=== PATIENT | female | born 1995 | race Caucasian/White ===

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

== ENCOUNTER 2017-02-24 09:12 | Emergency (ER) | payer SELFPAY ==
[2017-02-24 09:20] VITALS: BP 122/78
[2017-02-24 10:10] LABS: MONONUCLEOSIS PATIENT NEGATIVE (NEGATIVE)
[2017-02-24] MEDS ORDERED: PRED20TA PO (10:33)
[2017-02-24] MEDS ORDERED: CLIN300C8 PO (10:33)
--- NOTE | 2017-02-24 10:38 | PHYS DOC ---
General Chief Complaint: SORE THROAT Stated Complaint: SORE THROAT/FEVER Time Seen by MD: 09:13 Source: patient Exam Limitations: no limitations Problems: History of Present Illness Initial Comments Patient is a 22-year-old female who comes to the ED complaining of sore throat and fever. Patient states for the past few days she's had fever and left-sided sore throat. She says she gets recurrent tonsillitis on the left side and has been treated with antibiotics numerous times. She has history of mono in the past she has pain with swallowing but no difficulty swallowing solids liquids and no difficulty breathing. She has no neck stiffness or immunosuppression and otherwise states she is normally healthy and takes no daily medications. She does not have a primary care doctor and states she is getting a job at the [employer] within a week and we'll have benefits at that time. She currently works at a [employer] and her employer sent her home from work yesterday due to her symptoms. Drcl-eku-cboeulg medications are not helping, she is noted to be tachycardic on arrival she admits to drinking a large coffee on the way to the emergency department. Timing/Duration: last week Severity: moderate Location: throat Prearrival Treatment: over the counter meds Modifying Factors: worse with activity, worse with coughing Associated Symptoms: fever, malaise, sore throat Allergies: Coded Allergies: Penicillins (Verified Allergy, Intermediate, 08/24/13) Past Medical History Medical History: other (recurrent left tonsillitis) Surgical History: noncontributory Social History Smoker: non-smoker Alcohol: none Drugs: none Constitutional: see HPI Ears: denies dizziness, denies pain, denies tinnitus Nose: denies clots, denies congestion Throat: see HPI, denies neck stiffness, painful swallowing, denies difficulty with fluids Respiratory: denies shortness of breath, denies wheezing Cardiovascular: denies chest pain, denies palpitations, denies syncope Gastrointestinal: denies abdominal pain, denies nausea, denies vomiting Musculoskeletal: denies back pain, denies joint swelling, denies neck pain Physical Exam General Appearance: WD/WN, no apparent distress Eyes: bilateral eye normal inspection, bilateral eye PERRL, bilateral eye EOMI Ears: bilateral ear auricle normal, bilateral ear canal normal, bilateral ear TM normal Nose: normal inspection Mouth/Throat: other (left tonsil is 2+ with erythema and exudate right tonsil normal airway is patent) Neck: full range of motion, supple, lymphadenopathy (L) Cardiovascular/Respiratory: normal breath sounds, no respiratory distress 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 Aggressive hydration with Gatorade or water. Eclx-ipn-hifcdmr Tylenol and analgesic throat sprays as needed. Prescription: Clindamycin, prednisone You will need to follow-up with her doctor in 7-10 days for recheck. You may ultimately require and learning consultant referral and tonsillectomy. As you do not have insurance ED staff can give you information regarding the [facility] clinic and other resources collected payment based upon your income. Return to the ED with new or changing symptoms. MAKENNA CORRALES DO Feb 24, 2017 10:38
== END 2017-02-24 10:45 | disposition home or self-care (01) ==
LOC: ER 09:12
DX: J03.90 Acute tonsillitis, unspecified (principal); Z88.0 Allergy status to penicillin
CPT/HCPCS: 86308; 87070; 87880; 99284

== ENCOUNTER 2017-05-12 00:34 | Emergency (ER) | payer OTHER ==
[~2017-05-12] VITALS: Ht 165.1 cm; Wt 54.9 kg
[~2017-05-12 00:34] MED LIST changes: +CLIN300C8 PO; +PRED20TA PO
[2017-05-12 00:49] VITALS: BP 129/78
--- NOTE | 2017-05-12 01:34 | PHYS DOC ---
General Chief Complaint: COUGH Stated Complaint: SORE THROAT,COUGH Time Seen by MD: 00:35 Source: patient Exam Limitations: no limitations Problems: History of Present Illness Initial Comments Patient is a 22-year-old female who comes in the ED complaining of sore throat cough and body aches for the past week. Patient states that approximately one week ago she developed a dry cough with nasal congestion and intermittent headaches. She says those symptoms appeared to have resolved for the past 2 days however today developed a sore throat primarily on the left side. She denies any trouble breathing or difficulty with liquids she has not been eating as much due to the discomfort. She works at the [employer] and is missing work currently requesting a doctor's excuse. No pre-arrival treatment she denies any chest pain or difficulty breathing no neck stiffness or rash no vomiting diarrhea or bowel or bladder symptoms. Timing/Duration: 1 week, intermittent Severity: moderate Modifying Factors: worse with eating Associated Symptoms: cough, headaches, other Allergies: Coded Allergies: Penicillins (Verified Allergy, Intermediate, 08/24/13) Past Medical History Medical History: no pertinent history Surgical History: noncontributory Social History Smoker: non-smoker Alcohol: none Drugs: none Review of Systems Constitutional: see HPI EENTM: see HPI, denies throat swelling, denies mouth swelling Respiratory: cough, denies shortness of breath, denies wheezing Cardiovascular: denies chest pain, denies palpitations, denies syncope Gastrointestinal: denies abdominal pain, denies nausea, denies vomiting Genitourinary: denies dysuria, denies frequency, denies hematuria Musculoskeletal: denies back pain, denies joint swelling, denies neck pain Psychiatric/Neurological: see HPI, denies numbness, denies paresthesia, denies weakness Physical Exam General Appearance: WD/WN, no apparent distress Eyes: bilateral eye normal inspection, bilateral eye PERRL, bilateral eye EOMI Ear, Nose, Throat: hearing grossly normal, normal ENT inspection (pharyngeal erythema without exudate, no soft tissue swelling or airway compromise) Neck: non-tender, supple Respiratory: normal breath sounds, no respiratory distress Cardiovascular: normal peripheral pulses, regular rate, rhythm Gastrointestinal: non tender, soft Back: no CVA tenderness, no vertebral tenderness Extremities: non-tender, normal inspection 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 I discussed fpxj-rpo-[id number] prescription medications as well as oral hydration and a work note was given. She expressed agreement and understanding of the treatment plan Departure Time of Disposition: 02:30 Disposition: 01 HOME, SELF-CARE Diagnosis: left otitis media, pharyngitis Condition: GOOD Patient Instructions: Otitis Media, Adult, Viral and Bacterial Pharyngitis, Nsgz-hq-[id number] Additional Instructions: Please review the patient education materials given by ED staff. Aggressive hydration with Gatorade and water. Pjiz-cqy-sxbshxi Tylenol, ibuprofen, and analgesic throat sprays as needed. Prescription: Clindamycin Follow-up with your doctor in 7-10 days for recheck. Return to ED with new or changing symptoms. MAKENNA CORRALES DO May 12, 2017 01:34
[2017-05-12 02:21] LABS: INFLUENZA A PATIENT NEGATIVE (NEGATIVE); INFLUENZA B PATIENT NEGATIVE (NEGATIVE)
[2017-05-12] MEDS ORDERED: CLIN300C8 PO (02:30)
[2017-05-12] MEDS ORDERED: CLINDAMYCIN HCL 150 MG CAPSULE ONE (02:33)
[2017-05-12] MEDS ORDERED: CLINDAMYCIN HCL 150 MG CAPSULE PO ONE (03:00)
== END 2017-05-12 02:35 | disposition home or self-care (01) ==
LOC: ER 00:34
DX: J02.9 Acute pharyngitis, unspecified (principal); H66.92 Otitis media, unspecified, left ear; Z88.0 Allergy status to penicillin
CPT/HCPCS: 87070; 87804; 87880; 99284

== ENCOUNTER → 2018-07-16 | Outpatient (CLI) | payer BC ==
--- NOTE | 2018-07-16 09:57 | RAD ---
EXAM: Pelvic sonogram. HISTORY: Pelvic pain. TECHNIQUE: Transabdominal and transvaginal sonographic imaging of the pelvis was performed. COMPARISON: None. FINDINGS: The uterus measures 7.0 x 4.4 x 2.7 cm. There is trace fluid within the endometrial cavity. The combination of the endometrial stripe and endometrial fluid measures 2.1 mm. There is a small amount of free fluid. The ovaries are normal in size and demonstrate normal blood flow. There are small bilateral ovarian follicles, with a dominant follicle on the right measuring 1.0 cm. IMPRESSION: 1. Trace endometrial fluid. There is no evidence of endometrial thickening. 2. Small amount of nonspecific pelvic free fluid. Electronically signed by: Geena Miller MD (07/16/2018 9:54 AM) [place] [id number]
== END | disposition home or self-care (01) ==
LOC: US 07:48
PROVIDERS: ATTEND Physician Assistant
DX: R10.2 Pelvic and perineal pain (principal)
CPT/HCPCS: 76830; 76856

== ENCOUNTER 2018-11-21 12:49 | Emergency (ER) | payer BC ==
[~2018-11-21] VITALS: Ht 165.1 cm; Wt 50.5 kg
[2018-11-21 13:08] VITALS: BP 128/80
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
== END 2018-11-21 13:20 | disposition home or self-care (01) ==
LOC: ER 12:49
DX: M54.2 Cervicalgia (principal); M54.89 Other dorsalgia; Z88.0 Allergy status to penicillin; V49.59XA Passenger injured in collision with other motor vehicles in traffic accident, initial encounter; Y93.89 Activity, other specified; Y92.488 Other paved roadways as the place of occurrence of the external cause; Y99.8 Other external cause status
CPT/HCPCS: 99281; 99283

== ENCOUNTER 2019-03-05 23:50 | Emergency (ER) | payer BC ==
[~2019-03-05] VITALS: Ht 165.1 cm; Wt 50.5 kg
[2019-03-05 23:55] VITALS: BP 128/95
[2019-03-06] MEDS ORDERED: KETOROLAC 30 MG/ML VIAL. IM ONE
[2019-03-06] MEDS ORDERED: DEXAMETHASONE 4 MG TABLET PO ONE
[2019-03-06] MEDS ORDERED: LEVO500T59 PO (00:05)
[2019-03-06] MEDS ORDERED: PRED20TA PO (00:05)
--- NOTE | 2019-03-06 00:05 | PHYS DOC ---
Past History Past Medical History: Asthma Past Surgical History: No Surgical History Smoking: Non-smoker Alcohol Use: None Drug Use: None Adult General Chief Complaint Chief Complaint: EARACHE/EAR PAIN HPI HPI 24-year-old female presents with report of right earache which started tonight. Reports some drainage from right ear as well. Patient reports she awoke from sleep due to sharp pain. Denies fever or chills. Reports some associated nasal congestion which is been ongoing for the past week. Denies known sick tot contacts. Denies trauma. Denies . Review of Systems Review of Systems Constitutional: Denies fever or chills Eyes: Denies redness or eye pain HENT: Reports nasal congestion and right earache Respiratory: Denies cough or shortness of breath Cardiovascular: Denies chest pain or palpitations GI: Denies abdominal pain, nausea, or vomiting : Denies dysuria or hematuria Musculoskeletal: Denies back pain or joint pain Integument: Denies rash or skin lesions Neurologic: Denies headache, focal weakness or sensory changes Complete systems were reviewed and found to be within normal limits, except as documented in this note. Current Medications Current Medications Current Medications Medications (Trade) Dose Ordered Sig/Josefina Start Time Stop Time Status Last Admin Dose Admin Dexamethasone (Decadron) 10 mg 1X ONCE 03/06/19 00:00 03/06/19 00:01 UNV Ketorolac Tromethamine (Toradol 30mg Vial) 30 mg 1X ONCE 03/06/19 00:00 03/06/19 00:01 UNV Allergies Allergies Allergies Coded Allergies Type Severity Reaction Last Updated Verified Penicillins Allergy Intermediate 08/24/13 Yes Physical Exam Physical Exam Constitutional: Well developed, well nourished, no acute distress, non-toxic appearance HENT: Normocephalic, atraumatic, oropharynx moist, nasal congestion noted, right TM with erythema and really discharged likely secondary to partially ruptured membrane. No mastoid process tenderness. Eyes: Conjunctiva normal, no discharge Neck: Normal range of motion, supple Lungs & Thorax: No respiratory distress Skin: Warm, dry, no erythema, no rash Extremities: ROM intact, no edema Neurologic: Alert and oriented X 3, no focal deficits noted Psychologic: Affect normal, judgement normal EKG EKG [] Radiology/Procedures Radiology/Procedures [] Course & Med Decision Making Course & Med Decision Making Patient presents with history of present illness and physical exam consistent for right otitis media with possible rupture of membrane. Symptomatic treatment provided with oral steroid and IM ketorolac. Empiric antibiotic initiated. Patient stable for discharge with outpatient follow-up with PCP. Discussed findings and plan with patient, who acknowledges understanding and agreement. Lisa Disclaimer Dragon Disclaimer This electronic medical record was generated, in whole or in part, using a voice recognition dictation system. Departure Departure: Impression: Primary Impression: Otitis media with spontaneous rupture of tympanic membrane Disposition: HOME, SELF-CARE Condition: STABLE Referrals: PCP,ANIL (PCP) Patient Instructions: Otitis Media, Adult, Jacz-yu-Sffe Scripts Levofloxacin (LEVAQUIN) 500 Mg Tablet 500 MG PO QD for Otitis media, #7 TAB Prov: RUDY CHEN DO 03/06/19 Prednisone (PREDNISONE) 20 Mg Tablet 2 TAB PO DAILY for Otitis media, #8 TAB Start this prescription tomorrow, Saturday03/06/19 Prov: RUDY CHEN DO 03/06/19 RUDY CHEN DO Mar 06, 2019 00:05
[2019-03-06] MEDS ORDERED: levoFLOXacin 250 MG TABLET PO ONE (00:15)
== END 2019-03-06 00:35 | disposition home or self-care (01) ==
LOC: ER 23:50
DX: H66.91 Otitis media, unspecified, right ear (principal); H72.91 Unspecified perforation of tympanic membrane, right ear; J45.909 Unspecified asthma, uncomplicated; Z88.0 Allergy status to penicillin
CPT/HCPCS: 96372; 99283; J1885; J8540